=== PATIENT | male | born 1960 ===

== ENCOUNTER 2018-04-19 13:53 | Outpatient (CLI) | payer MEDICARE, MEDICAID ==
--- NOTE | 2018-04-19 15:49 | Diagnostic Imaging Report ---
Indication: Osteoporosis Technique: 10 mm thick slices obtained through the L2, L3, and L4 vertebral bodies. Cortical and trabecular regions of interest were drawn. The average trabecular bone mineral density was calculated. Total dose length product 30.88 mGycm. CTDIvol(s) 3 x 3 mGy. Dose reduction achieved using automated exposure control Comparison: 04/18/2015 Findings: The calculated bone mineral density is 146 mg [id number]/ml. The T score is -1.08. This indicates the patient's bone mineral density is 1.08 standard deviations below that of normal 20-year-old males. The Z score is 1.37. This indicates the patient's bone mineral density is 1.37 standard deviations above that of age-matched controls. Previous values were bone mineral density of 160, with T score of -0.55, patient within normal range at that time Impression: Patient mineral density is 10-25% below that of normal 20-year-old males. Patient is considered osteopenic by WHO criteria. Insufficiency fracture risk is moderate. This has progressed slightly since previous study of 04/18/[address] scanner at [facility] is accredited by the [employer] and the scans are performed using protocols designed to limit radiation exposure to as low as reasonably achievable to attain images of sufficient resolution adequate for diagnostic evaluation.
== END 2018-04-19 15:53 | disposition home or self-care (01) ==
LOC: CAT 13:53
DX: M81.0 Age-related osteoporosis without current pathological fracture (principal)
CPT/HCPCS: 77078